=== PATIENT | female | born 1995 | race Caucasian/White ===

== ENCOUNTER → 2020-10-09 07:20 | Outpatient (CLI) | payer BC, SELFPAY ==
--- NOTE | ~2020-10-09 | US_ITS ---
EXAMINATION: US right upper quadrant DATE: 10/09/2020 07:45 INDICATION: Right upper quadrant pain TECHNIQUE: Multiple grayscale and Doppler ultrasound images of the abdomen were obtained. COMPARISON: None available FINDINGS: The head, body, and tail of the pancreas are normal. The liver is normal with normal echoge nicity and echotexture. No surface nodularity. Normal hepatopetal flow in the main portal vein. The g allbladder is normal with no abnormal wall thickening, pericholecystic fluid or stones. The normal co mmon bile duct measures 3 mm. There was no sonographic Wagner sign. Mild right hydronephrosis is pres ent. IMPRESSION: 1. Normal sonographic study of the gallbladder. 2. Mild right hydronephrosis is present. Reviewed, dictated and finalized at location A. INE HOSE CUTTER
== END ==
PROVIDERS: Visit Provider Obstetrics & Gynecology Gynecology
DX: R10.11 Right upper quadrant pain (principal)
CPT/HCPCS: 76705

== ENCOUNTER 2021-02-05 10:00 | Outpatient (RCR) | payer BC, OTHER, SELFPAY ==
[2020-12-30 18:16] VITALS: BP 123/78; PULSE 81
[2021-01-13 13:32] VITALS: BP 113/67; PULSE 94
[2021-02-05 11:05] VITALS: BP 107/73; PULSE 84
== END 2021-02-11 07:34 | disposition home or self-care (01) ==
LOC: ANHOBOP 10:00
PROVIDERS: PCP Family Medicine; Visit Provider Obstetrics & Gynecology
DX: O16.3 Unspecified maternal hypertension, third trimester (principal); O36.8130 Decreased fetal movements, third trimester, not applicable or unspecified; Z3A.32 32 weeks gestation of pregnancy; Z3A.34 34 weeks gestation of pregnancy; Z3A.38 38 weeks gestation of pregnancy
CPT/HCPCS: 59025

== ENCOUNTER 2021-02-09 18:39 | Inpatient (IN) | payer BC, SELFPAY ==
[2021-02-09] VITALS (13 sets, daily range): BP systolic 111–134; BP diastolic 65–82; PULSE 83–99; RESP 18–20; TEMP 36.3–36.8; BMI 39.9
[2021-02-09 19:32] LABS: Alanine Aminotransferase 17 U/L (4-35); Albumin Level 3.4 g/dL (3.5-5.1); Alkaline Phosphatase 89 U/L (38-126); Anion Gap 6 mmol/L (8-16); Aspartate Amino Transferase 21 U/L (14-36); Bilirubin,Total < 0.1 mg/dL (0.2-1.3); Blood Urea Nitrogen 7 mg/dL (7-17); Calcium 8.9 mg/dL (8.4-10.2); Carbon Dioxide 22 mmol/L (22-30); Chloride 107 mmol/L (98-107); Estimated Glomerular Filt Rate > 60; Glucose 106 mg/dL (65-105); Potassium 3.7 mmol/L (3.4-5.0); Sodium 135 mmol/L (137-145)
[2021-02-09 19:33] LABS: Uric Acid 3.7 mg/dL (2.5-7.5)
[2021-02-09 19:39] LABS: Basophils Percent Auto 0.2 % (0.2-1.2); Eosinophils Absolute Auto 0.2 K/mm3 (0-0.3); Eosinophils Percent Auto 1.8 % (0-4.4); Hematocrit 33.9 % (37.0-47.0); Hemoglobin 11.2 g/dL (12.0-15.0); Immature Granulocyte Absolute 0.13 K/mm3 (0.00-0.031); Immature Granulocyte Percent A 1.1 % (0-0.5); Lymphocytes Absolute Auto 2.67 K/mm3 (0.9-3.2); Lymphocytes Percent Auto 22.1 % (18.3-44.2); Mean Corpuscular Hemoglobin 30.1 pg (26-34); Mean Corpuscular Volume 91.1 fl (80-100); Mean Platelet Volume 9.6 fl (7.4-10.4); Monocytes Absolute Auto 0.9 K/mm3 (0.1-0.6); Monocytes Percent Auto 7.4 % (2.6-8.5); Neutrophils Absolute Auto 8.2 K/mm3 (1.3-6.7); Neutrophils Percent Auto 67.4 % (45.5-73.1); Platelet Count Result 245 k/mm3 (150-375); Red Blood Count 3.72 M/mm3 (4.2-5.4); Red Cell Distribution Width 14.6 % (11.5-14.5); White Blood Count 12.1 K/mm3 (4.5-10.0)
[2021-02-09] MEDS: DINOPROSTONE 10 MG VAG INSERT VAGINAL (19:39)
--- NOTE | 2021-02-09 19:53 | LDADM ---
This patient, Allison Montero, was admitted to Labor/Delivery/Recovery 109 on 02/09/21 at 18:39. Plans for labor, pain management and were discussed with patient. Patient/family oriented to hospital policies and general routines including ID bracelet, bed and alarms, visiting hours, pain management, procedures, bathroom and other care routines, personal items, smoking policy, room service/diet and guest tray routines, infant security routines, and visiting hours. Patient/Family are encouraged to report perceived risks to care and to ask questions if they do not understand what they are told or what they should do. See OBIX for further documentation.
[2021-02-10] VITALS (211 sets, daily range): BP systolic 85–148; BP diastolic 52–94; PULSE 73–104; RESP 16–22; TEMP 36–37.1; O2SAT 95–100
[2021-02-10] MEDS: LACTATED RINGERS 1,000 ML 125 ML IV CONT ×4 (03:22→19:38)
[2021-02-10] MEDS: LABETALOL HCL 100 MG TABLET 200 MG PO (06:37)
--- NOTE | 2021-02-10 07:26 | P.HP_ITS ---
Obstetrics - Admit Note Admission Note: AROM clear fluid /- record reviewed. No pertinent additions to the history and/or any subsequent changes in the physical findings that are not consistent with the expected course of the were found. Additions to the history and/or subsequent changes in the physical findings fo llow. None.
[2021-02-10] MEDS: OXYTOCIN 30 UNITS/NS 500 ML 30 UNITS/500 ML BAG IV CONT (08:34)
[2021-02-10 08:52] LABS: Rapid Plasma Reagin Non-Reactive (NonReactive)
--- NOTE | 2021-02-10 09:02 | WPDANESEPP ---
Anes - Eval Pre Procedure Procedure: labor epidural Date/Time: 02/10/21 09:02 Surgeon: cody Pre Op Diagnosis: Induction of Labor Patient Data Age: 25 Gender: F Height: 1.6 m Weight: 102.3 kg Last Vital Signs Temp 36.0 C L 02/10/21 06:30 Pulse 96 02/10/21 07:58 Resp 20 02/10/21 03:04 BP 143/93 H 02/10/21 07:58 Allergies Allergy/AdvReac Type Severity Reaction Status Date / Time Penicillins Allergy Unknown Verified 01/24/21 14:19 Home Medications Medication Instructions Recorded Confirmed Type aspirin [Low-Dose Aspirin] 81 mg PO DAILY 01/24/21 02/09/21 History ergocalciferol (vitamin D2) 1,250 mcg PO 2XW 01/24/21 02/09/21 History [Vitamin D2] ferrous sulfate 325 mg PO BID 01/24/21 02/09/21 History labetalol 200 mg PO Q12H 01/24/21 02/09/21 History prenat.vits,ki,xwk-uvjr-bmoww 1 tablet PO DAILY 01/24/21 02/09/21 History [ #2] Laboratory Tests 02/09/21 02/09/21 02/09/21 19:15 19:15 19:15 WBC 12.1 K/mm3 H K/mm3 (4.5-10.0) RBC 3.72 M/mm3 L M/mm3 (4.2-5.4) Hgb 11.2 g/dL L g/dL (12.0-15.0) Hct 33.9 % L % (37.0-47.0) MCV 91.1 fl fl (80-100) MCH 30.1 pg pg (26-34) MCHC 33.0 g/dl g/dl (32-36) RDW 14.6 % H % (11.5-14.5) Plt Count 245 k/mm3 k/mm3 (150-375) MPV 9.6 fl fl (7.4-10.4) Immature Gran % (Auto) 1.1 % H % (0-0.5) Neut % (Auto) 67.4 % % (45.5-73.1) Lymph % (Auto) 22.1 % % (18.3-44.2) [place] % (Auto) 7.4 % % (2.6-8.5) Eos % (Auto) 1.8 % % (0-4.4) Baso % (Auto) 0.2 % % (0.2-1.2) Lymph # (Auto) 2.67 K/mm3 K/mm3 (0.9-3.2) [place] # (Auto) 0.9 K/mm3 H K/mm3 (0.1-0.6) Eos # (Auto) 0.2 K/mm3 K/mm3 (0-0.3) Baso # (Auto) 0.0 K/mm3 K/mm3 (0.0-0.1) Abs Immat Gran (auto) 0.13 K/mm3 H K/mm3 (0.00-0.031) Absolute Neuts (auto) 8.2 K/mm3 H K/mm3 (1.3-6.7) Absolute Nucleated RBC 0.0 K/mm3 K/mm3 (0.0-0.012) Nucleated RBC % 0.0 % % (0.0-0.2) Sodium Potassium Chloride Carbon Dioxide Anion Gap BUN Creatinine Estim Creat Clear Calc Estimated GFR Glucose Uric Acid 3.7 mg/dL mg/dL (2.5-7.5) Calcium Total Bilirubin AST ALT Alkaline Phosphatase Total Protein Albumin RPR Non-reactive (NonReactive) Blood Type Antibody Screen 02/09/21 02/09/21 19:15 19:15 WBC RBC Hgb Hct MCV MCH MCHC RDW Plt Count MPV Immature Gran % (Auto) Neut % (Auto) Lymph % (Auto) [place] % (Auto) Eos % (Auto) Baso % (Auto) Lymph # (Auto) [place] # (Auto) Eos # (Auto) Baso # (Auto) Abs Immat Gran (auto) Absolute Neuts (auto) Absolute Nucleated RBC Nucleated RBC % Sodium 135 mmol/L L mmol/L (137-145) Potassium 3.7 mmol/L mmol/L (3.4-5.0) Chloride 107 mmol/L mmol/L (98-107) Carbon Dioxide 22 mmol/L mmol/L (22-30) Anion Gap 6 mmol/L L mmol/L (8-16) BUN 7 mg/dL mg/dL (7-17) Creatinine 0.50 mg/dL L mg/dL (0.7-1.0) Estim Creat Clear Calc Not Reportable Estimated GFR > 60 (59 - ) Glucose 106 mg/dL H mg/dL (65-105) Uric Acid Calcium 8.9 mg/dL mg/dL (8.4-10.2) Total Bilirubin < 0.1 mg/dL L mg/dL (0.2-1.3) AST 21 U/L U/L (14-36) ALT 17 U/L U/L (4-35) Alkaline Phosphatase 89 U/L U/L (38-126) Total Protein 6.0 g/dL L g/dL (6.3-8.2) Albu
[2021-02-10] MEDS: ONDANSETRON INJ 4 MG/2 ML VIAL IV PUSH (18:31)
--- NOTE | 2021-02-10 23:38 | PM.OBPRVD ---
OB - Delivery Note Procedure Delivery date: 02/10/21 Procedure: Intrapartal events: Acceleration Induction method: AROM, per pitocin protocol and per cervidil protocol Delivery monitor: external FHT, external uterine and internal uterine Route of delivery: Episiotomy description: Midline Laceration Description: Perineal - 2nd Degree Delivery repair: vicryl Specimen: Yes Quantitative Blood Loss (ml): 380 Anesthesia type: Epidural Disposition: floor Baby Date of : 02/10/21 Weeks of gestation at delivery: 38 gender: Female Weight (pounds): 7 Weight (ounces): 9 presentation: vertex position: Right Occiput Anterior cord vessel description: 3 Vessels and Around Body x1 score one minute: 8 score five minutes: 9
[2021-02-10] MEDS: OXYTOCIN 30 UNITS/NS 500 ML 30 UNITS/500 ML BAG 125 UNITS IV CONT (23:49)
[2021-02-11] VITALS (15 sets, daily range): BP systolic 112–148; BP diastolic 68–88; PULSE 70–92; RESP 16–18; TEMP 36.4–37; O2SAT 96–99
[2021-02-11] MEDS: IBUPROFEN 600 MG TABLET PO ×4 (00:16→22:43)
[2021-02-11] MEDS: LABETALOL HCL 100 MG TABLET 200 MG PO ×3 (01:19→20:20)
[2021-02-11] MEDS: WITCH HAZEL 40 PADS 1 PAD TOPICAL (01:20)
[2021-02-11] MEDS: BENZOCAINE 20% AER SPR (*SP) 56 GM CAN 1 SPRAY TOPICAL (01:20)
--- NOTE | 2021-02-11 01:43 | OBPPTRN ---
Patient transferred to post room #291 via wheelchair. Support person present. Oriented to unit, room, information board, rooming in, admission packet and security measures. Patient verbalizes understanding. with patient.
[2021-02-11 05:54] LABS: Hematocrit 33.5 % (37.0-47.0); Hemoglobin 10.9 g/dL (12.0-15.0)
[2021-02-11] MEDS: MULTIVIT/MIN/PREN/FOL AC/IRON TABLET 1 TAB PO (08:46)
--- NOTE | 2021-02-11 12:47 | PM.OBPNVD ---
OB - PN: Subj Subjective Date/time seen: 02/11/21 12:47 doing well no complaints OB - PN: Obj Data Labs CBC & Chem 7: 02/11/21 05:24 02/09/21 19:15 Labs: Laboratory Results - last 24 hr 02/11/21 05:24 Hgb 10.9 L Hct 33.5 L OB - PN A/P Assessment and Plan (1) (normal spontaneous vaginal delivery): Code(s): O80 - Encounter for full-term uncomplicated delivery Status: Acute Assessment and Plan: continue with pp care. plans micronor control. Time Spent With Patient Time: Total time spent is greater than 50% in coordination of care (as documented) at patient's floor/unit and/or counseling patient: Exam : Other: ff below umbilicus
--- NOTE | 2021-02-11 13:04 | WPDANLDPN2 ---
Anes-Prog Note L&D Date/Time: 02/11/21 13:04 Comfortable throughout: labor and delivery Neuraxial method: epidural Epidural/Spinal procedure site: clean & non-tender Neuro status: Neuro function grossly intact. Cardiovascular status: normal Respiratory status: normal Airway patency: baseline Mental status: baseline Post-Op hydration status: normal Vital Signs: Last Vital Signs Temp 36.8 C 02/11/21 08:50 Pulse 72 02/11/21 12:17 Resp 18 02/11/21 08:50 BP 128/75 02/11/21 08:50 Pulse Ox 98 02/11/21 08:50 Pain score (VAS): 0 I/O: Intake & Output 02/10/21 02/11/21 02/11/21 23:59 07:59 15:59 Intake Total 2300 Output Total 55 Balance 2300 -55 Post-procedural complaints: none Patient feedback: Patient satisfied with anesthetic care.
--- NOTE | 2021-02-11 14:30 | PC.NURSE ---
Consult with pt., mother reports she wishes to pump and bottle feed EBM/formula. Mother states she has not pumped regularly due to not pumping more than a few drops previous sessions. Discussed the difference of nursing to pumping, mother may not have more than a few mls in the colostrum phase and milk should increase and transition in within a few days. Regular stimulation should assist with increasing milk supply. Reviewed breast pump care and usage, pumping schedule, nipple care, and collection and storage of breast milk. Encouraged [id number], breast massage and manual expression to stimulate supply. Assessed patient for correct flange size, placement and draw. Patient verbalizes and demonstrates understanding of instructions. Mother is feeding as required and waking infant to feed if needed. Infant is currently meeting for output, jaundice and feeding frequencies. Mother states she feels confident to continue current plan of pumping and bottle feeding at home. Reviewed transition to breast milk, signs of adequate intake, and engorgement/relief. Instructed to call ICP if intake/output less than required. Reviewed regular medications mother is taking. Information provided per Kamila. Reviewed community resources on the [facility] website and in the Mom/Baby guide. Information on outpatient services provided. Mother has no further questions at this time.
[2021-02-11] MEDS: ACETAMINOPHEN 325 MG TABLET 650 MG PO (20:18)
[2021-02-11] MEDS: DOCUSATE SODIUM 100 MG CAPSULE PO (20:18)
--- NOTE | 2021-02-12 07:45 | PC.NURSE ---
PT introductions made and plan of care discussed per post , pain management, breast pumping and bottle feeding, daily care activities and pending discharge to home. PT and spouse both receive instructions through out the day and no barriers to learning noted. Discussion one to one and mother baby guide utilized. PT verbalized understanding of such care.
[2021-02-12 10:00] VITALS: BP 126/84; PULSE 86; RESP 18; TEMP 37; O2SAT 98
[2021-02-12] MEDS: ACETAMINOPHEN 325 MG TABLET 650 MG PO (10:02)
[2021-02-12 10:03] VITALS: PULSE 84
[2021-02-12] MEDS: LABETALOL HCL 100 MG TABLET 200 MG PO (10:03)
[2021-02-12] MEDS: IBUPROFEN 600 MG TABLET PO (10:04)
[2021-02-12] MEDS: DOCUSATE SODIUM 100 MG CAPSULE PO (10:04)
--- NOTE | 2021-02-12 12:05 | PM.OBPNVD ---
OB - PN: Subj Subjective Date/time seen: 02/12/21 12:05 Patient comments: no complaints and pain well controlled baby status: doing well OB - PN: Obj Data Labs CBC & Chem 7: 02/11/21 05:24 02/09/21 19:15 OB - PN A/P Plan day: 2 Plan: routine care, discharge home, follow up 6 weeks and other (plans POP for bc) Time Spent With Patient Time: Total time spent is greater than 50% in coordination of care (as documented) at patient's floor/unit and/or counseling patient: Exam : Bimanual exam- vagina & uterus: other (Uterus firm, nt @U)
--- NOTE | 2021-02-12 12:08 | PC.NURSE ---
Patient viewed the discharge video Mother & Baby Care, The First Two Weeks . Patient was given the opportunity and encouraged to ask questions. Patient verbalized understanding of information shared and has been given the mother/baby guide for home reference.
--- NOTE | 2021-02-12 13:00 | PC.NURSE ---
PT received discharge instructions per protocol and verbalized understanding of such instructions.
--- NOTE | 2021-02-12 13:32 | PC.NURSE ---
PT discharged to home ambulatory accompanied by spouse and and taken to waiting car, Follow up appts confirmed
[2021-02-14 07:50] VITALS: BP 120/74; PULSE 84; RESP 16; TEMP 36.4; O2SAT 98
--- NOTE | 2021-03-07 08:18 | PM.OBDSVD ---
DS: Admitting Diagnosis Admitting Diagnosis Admitting Diagnosis: induction DS: Discharge Diagnosis Discharge Diagnosis (1) (normal spontaneous vaginal delivery): Code(s): O80 - Encounter for full-term uncomplicated delivery Status: Acute (2) HTN (hypertension): Code(s): I10 - Essential (primary) hypertension Status: Acute OB - DS: Summary OB Procedures : NST and Ultrasound OB Procedures Intrapartum: Spontaneous Vag Delivery OB Procedures: : None Time Spent with Patient Time attestation: Total time spent providing and/or coordinating discharge services: DS: Data Data Completed and Pending Completed studies during hospitalization: Pending at discharge 02/10/21 23:23 Surgical [PTH] Routine Discharge Plan Discharge Attending physician on discharge: Francisco J Berry Discharging Clinician: Francisca Kumar Anticipated Discharge Date/Time: 02/12/21 12:06 Patient Disposition: Home, Self-Care Activity: may shower and pelvic rest Diet: regular Discharge Instructions: Education: Mom and Baby Guide Given to: Mother Follow-Up: Call your delivering provider's office for an appointment to be seen in: 6 Weeks Mom and baby should come to the [facility] for the follow-up appointment. Appointment Date/Time: February 14, 2021 at 11:00 am What to expect at your follow-up visit: Blood Pressure Check Call [phone] if you are unable to keep your appointment time. BREAST CARE: * Wear a snug supportive bra. * For engorgement discomfort: Bottle Feeding: * May apply ice packs PERINEAL CARE: * Until bleeding stops, use your becky bottle after urinating * Change your pad frequently throughout the day * You may take sitz baths several times a day (fill your bathtub with warm water and soak for 20 minutes.) Do NOT bathe in the water * No tub baths until seen by your physician - You may shower ACTIVITY: * Rest as much as possible. * Do not exercise or lift anything heavier than your baby (such as laundry or other children.) * Avoid stairs or driving as much as possible. * Do not put anything into the vagina. No douching, tampons, or sexual activity until seen by physician. NOTIFY PHYSICIAN IF YOU HAVE ANY QUESTIONS OR IF ANY OF THE FOLLOWING SYMPTOMS OCCUR: * If your becomes red, swollen, or more painful than what you have experienced in the hospital. * If your vaginal bleeding becomes foul smelling. * If your vaginal bleeding becomes more heavy than a period or if your bleeding changes from pink to bright red. However, you may pass an occasional walnut-sized clot once or twice for the first week . * If you experience a sharp, shooting pain in you calves. * If you discover a hard, reddened area on your breast or if you experience flu-like symptoms. * If you have a fever of 100.4 or greater DIET: * Eat regular, well-balanced meals. * Drink plenty of fluids daily. If , drink to thirst. Patient Instructions: Antibiotic Form Stand Alone Forms: General Discharge Information Follow-up/Referrals: Francisco J Berry MD [Physician] - 6 Weeks Discharge Medications: New norethindrone (contraceptive) 0.35 mg tablet 0.35 mg PO DAILY Qty: 28 RF: 8 Continued labetalol 200 mg Tablet 200 mg PO Q12H RF: 0 ferrous sulfate 325 mg (65 mg iron) Tablet 325 mg PO BID RF: 0 ergocalciferol (vitamin D2) [Vitamin D2] 1,250 mcg (50,000 unit) Capsule 1,250 mcg PO 2XW RF: 0 prenat.vits,ki,lir-rtog-iduzd Tablet 1 tablet PO DAILY RF: 0 Discontinued Low-Dose Aspirin 81 mg Tablet 81 mg PO DAILY RF: 0 Date of admission: 02/09/21 18:39 Primary Care Provider: Toña,Addy Macias Admitting Provider: Francisco J Berry Attending physician on admission: Franicsca Kumar Condition: Stable
== END 2021-02-12 13:32 | disposition home or self-care (01) | DRG 807 ==
LOC: ANHLDR 19:24 → ANHOB2 02-12 07:44 → ANHLDR 02-15 10:01 → ANHOB2 02-15 10:01
PROVIDERS: Admitting Provider Obstetrics & Gynecology; PCP Family Medicine; Visit Provider Obstetrics & Gynecology Gynecology
DX: O10.92 Unspecified pre-existing hypertension complicating childbirth (principal); Z37.0 Single live birth; Z3A.38 38 weeks gestation of pregnancy; O36.8330 Maternal care for abnormalities of the fetal heart rate or rhythm, third trimester, not applicable or unspecified; O69.2XX0 Labor and delivery complicated by other cord entanglement, with compression, not applicable or unspecified
CPT/HCPCS: 36415; 80053; 84550; 85014; 85018; 85025; 86592; 86850; 86900; 86901; 88307; A9270; J2405; J2590; J2795; J7120

== ENCOUNTER → 2022-11-07 11:06 | Outpatient (CLI) | payer OTHER, SELFPAY ==
--- NOTE | ~2022-11-07 | US_ITS ---
EXAMINATION: US OB <= 14 weeks fetus DATE: 11/07/2022 11:29 INDICATION: Uncertain dating of during first trimester TECHNIQUE: Real-time pelvic ultrasound utilizing transabdominal probe was performed. The eli grajeda radiologist was not present for the study. COMPARISON: None. FINDINGS: The uterus measures 11.5 x 5.3 x 7.1 cm. There is an intrauterine gestational sac. A yolk sac and fe ishaan pole are identified. The crown rump length measures 2.3 cm, which correlates with an estimated ge stational age of 9 weeks and 0 days. heart motion is identified measuring 172 beats per minute (bpm) by M-mode Doppler. The right ovary measures 3.6 x 2.6 x 2.9 cm. 2.2 cm anechoic likely corpus luteum cyst in the right o vary. The left ovary measures 2.7 x 1.2 x 1.9 cm. There is no free fluid in the pelvis. IMPRESSION: 1. Single living fetus with heart rate of 172 bpm. 2. Gestational age by ultrasound of 9 weeks 0 day(s) +/- 6 day(s) with ultrasound estimated date of delivery (GUILHERME) of 06/12/2023. Reviewed, dictated and finalized at location A. NING MACHINE TENDER IMPRESSION: 1. Single living fetus with heart rate of 172 bpm. 2. Gestational age by ultrasound of 9 weeks 0 day(s) +/- 6 day(s) with ultraso und estimated date of delivery (GUILHERME) of 06/12/2023.
== END ==
PROVIDERS: PCP Obstetrics & Gynecology Gynecology; Visit Provider Obstetrics & Gynecology Gynecology
DX: Z36.87 Encounter for antenatal screening for uncertain dates (principal); Z3A.09 9 weeks gestation of pregnancy
CPT/HCPCS: 76801

== ENCOUNTER 2023-05-26 16:53 | Inpatient (IN) | payer OTHER, SELFPAY ==
[2023-05-26] VITALS (12 sets, daily range): BP systolic 103–136; BP diastolic 58–87; PULSE 86–97; RESP 16; TEMP 36.6–36.7
[2023-05-26 17:58] LABS: Basophils Percent Auto 0.3 % (0.2-1.2); Eosinophils Absolute Auto 0.1 K/mm3 (0-0.3); Eosinophils Percent Auto 1.3 % (0-4.4); Hemoglobin 11.5 g/dL (12.0-15.0); Immature Granulocyte Absolute 0.07 K/mm3 (0.00-0.031); Immature Granulocyte Percent A 0.6 % (0-0.5); Lymphocytes Percent Auto 25.7 % (18.3-44.2); Mean Corpuscular HGB Conc 31.9 g/dl (32-36); Mean Corpuscular Hemoglobin 29.5 pg (26-34); Mean Corpuscular Volume 92.3 fl (80-100); Mean Platelet Volume 10.2 fl (7.4-10.4); Monocytes Absolute Auto 0.7 K/mm3 (0.1-0.6); Monocytes Percent Auto 6.5 % (2.6-8.5); Neutrophils Absolute Auto 7.1 K/mm3 (1.3-6.7); Neutrophils Percent Auto 65.6 % (45.5-73.1); Platelet Count Result 238 k/mm3 (150-375); Red Cell Distribution Width 14.5 % (11.5-14.5); White Blood Count 10.9 K/mm3 (4.5-10.0)
[2023-05-26 18:10] LABS: Alanine Aminotransferase 19 U/L (6-35); Albumin Level 3.4 g/dL (3.5-5.1); Alkaline Phosphatase 129 U/L (38-126); Anion Gap 5 mmol/L (8-16); Aspartate Amino Transferase 20 U/L (14-36); Bilirubin,Total 0.2 mg/dL (0.2-1.3); Blood Urea Nitrogen 7 mg/dL (7-17); Calcium 8.8 mg/dL (8.4-10.2); Carbon Dioxide 20 mmol/L (22-30); Chloride 106 mmol/L (98-107); Estimated Glomerular Filt Rate > 60; Glucose 97 mg/dL (65-110); Potassium 3.8 mmol/L (3.4-5.0); Sodium 131 mmol/L (137-145); Uric Acid 4.5 mg/dL (2.5-7.5)
[2023-05-26 18:11] LABS: Appearance Urine Clear (Clear); Bacteria Urine None Seen /hpf; Bilirubin Urine Negative (Negative); Blood Urine Negative (Negative); Color Urine Yellow (Yellow); Glucose Urine UA Negative (Negative); Ketones Urine Negative (Negative); Leukocyte Esterase Ur Trace LEU/UL (NEGATIVE); Nitrate Urine Negative (Negative); Non Pathogenic Casts 0-2; Protein Urine Negative (Negative); RBC Urine 0-2 /hpf (0-2); Specific Grav Ur 1.003 (1.001-1.035); Squamous Epithelial Cell Urine Few /hpf (Few); Urobilinogen Urine 0.2 mg/dL (<2.0); WBC Urine 0-5 /hpf (0-3)
[2023-05-26 18:12] LABS: Creatinine Urine 9.8 mg/dL; Total Protein Urine Random 14 mg/dL; Ur Ttl Prot Creatinine Ratio 1.43 mg/mg (0-0.20)
[2023-05-26 18:19] LABS: Add Urine Microscopic? YES
[2023-05-26 19:25] LABS: Basophils Percent Auto 0.3 % (0.2-1.2); Eosinophils Absolute Auto 0.2 K/mm3 (0-0.3); Eosinophils Percent Auto 1.5 % (0-4.4); Hematocrit 35.9 % (37.0-47.0); Hemoglobin 11.8 g/dL (12.0-15.0); Immature Granulocyte Absolute 0.07 K/mm3 (0.00-0.031); Immature Granulocyte Percent A 0.6 % (0-0.5); Lymphocytes Absolute Auto 3.31 K/mm3 (0.9-3.2); Mean Corpuscular HGB Conc 32.9 g/dl (32-36); Mean Corpuscular Hemoglobin 29.6 pg (26-34); Mean Platelet Volume 10.2 fl (7.4-10.4); Monocytes Absolute Auto 0.8 K/mm3 (0.1-0.6); Monocytes Percent Auto 6.2 % (2.6-8.5); Neutrophils Absolute Auto 7.9 K/mm3 (1.3-6.7); Neutrophils Percent Auto 64.4 % (45.5-73.1); Platelet Count Result 252 k/mm3 (150-375); Red Blood Count 3.99 M/mm3 (4.2-5.4); Red Cell Distribution Width 14.6 % (11.5-14.5); White Blood Count 12.3 K/mm3 (4.5-10.0)
[2023-05-26 20:15] LABS: HIV 1/2 Ab P24 Ag Result Negative (Negative)
[2023-05-26] MEDS: DINOPROSTONE 10 MG VAG INSERT VAGINAL (20:18)
[2023-05-26] MEDS: ACETAMINOPHEN 500 MG TABLET 1000 MG PO (20:18)
--- NOTE | 2023-05-26 23:05 | WPDANESEPP ---
Anes - Eval Pre Procedure Procedure: labor epidural Date/Time: 05/26/23 23:05 Pre Op Diagnosis: Induction/PHI Patient Data Age: 27 Gender: F Height: Weight: Last Vital Signs Temp 36.7 C 05/26/23 19:00 Pulse 97 05/26/23 20:00 Resp 16 05/26/23 19:00 BP 109/70 05/26/23 20:00 Allergies Allergy/AdvReac Type Severity Reaction Status Date / Time Penicillins Allergy Unknown Verified 05/26/23 19:05 Home Medications Medication Instructions Recorded Confirmed Type ergocalciferol (vitamin D2) 1,250 See Rx Instructions .Route .COMPLEX 01/24/21 05/15/23 History mcg (50,000 unit) capsule (Vitamin D2) prenat.vits,ki,czv-dloq-ewikl 1 tablet PO DAILY 01/24/21 05/15/23 History aspirin 81 mg tablet 81 mg PO DAILY 05/15/23 05/15/23 History nifedipine 60 mg tablet,extended 60 mg PO DAILY 05/15/23 05/15/23 History release 24 hr (Procardia XL) Laboratory Tests 05/26/23 05/26/23 05/26/23 17:28 17:29 19:18 WBC 10.9 H K/mm3 12.3 H K/mm3 (4.5-10.0) (4.5-10.0) RBC 3.90 L M/mm3 3.99 L M/mm3 (4.2-5.4) (4.2-5.4) Hgb 11.5 L g/dL 11.8 L g/dL (12.0-15.0) (12.0-15.0) Hct 36.0 L % 35.9 L % (37.0-47.0) (37.0-47.0) MCV 92.3 fl 90.0 fl (80-100) (80-100) MCH 29.5 pg 29.6 pg (26-34) (26-34) MCHC 31.9 L g/dl 32.9 g/dl (32-36) (32-36) RDW 14.5 % 14.6 H % (11.5-14.5) (11.5-14.5) Plt Count 238 k/mm3 252 k/mm3 (150-375) (150-375) MPV 10.2 fl 10.2 fl (7.4-10.4) (7.4-10.4) Immature Gran % (Auto) 0.6 H % 0.6 H % (0-0.5) (0-0.5) Neut % (Auto) 65.6 % 64.4 % (45.5-73.1) (45.5-73.1) Lymph % (Auto) 25.7 % 27.0 % (18.3-44.2) (18.3-44.2) [place] % (Auto) 6.5 % 6.2 % (2.6-8.5) (2.6-8.5) Eos % (Auto) 1.3 % 1.5 % (0-4.4) (0-4.4) Baso % (Auto) 0.3 % 0.3 % (0.2-1.2) (0.2-1.2) Lymph # (Auto) 2.80 K/mm3 3.31 H K/mm3 (0.9-3.2) (0.9-3.2) [place] # (Auto) 0.7 H K/mm3 0.8 H K/mm3 (0.1-0.6) (0.1-0.6) Eos # (Auto) 0.1 K/mm3 0.2 K/mm3 (0-0.3) (0-0.3) Baso # (Auto) 0.0 K/mm3 0.0 K/mm3 (0.0-0.1) (0.0-0.1) Abs Immat Gran (auto) 0.07 H K/mm3 0.07 H K/mm3 (0.00-0.031) (0.00-0.031) Absolute Neuts (auto) 7.1 H K/mm3 7.9 H K/mm3 (1.3-6.7) (1.3-6.7) Absolute Nucleated RBC 0.0 K/mm3 0.0 K/mm3 (0.0-0.012) (0.0-0.012) Nucleated RBC % 0.0 % 0.0 % (0.0-0.2) (0.0-0.2) Sodium 131 L mmol/L (137-145) Potassium 3.8 mmol/L (3.4-5.0) Chloride 106 mmol/L (98-107) Carbon Dioxide 20 L mmol/L (22-30) Anion Gap 5 L mmol/L (8-16) BUN 7 mg/dL (7-17) Creatinine 0.50 L mg/dL (0.7-1.0) Estim Creat Clear Calc Not Reportable Estimated GFR > 60 (59 - ) Glucose 97 mg/dL (65-110) Uric Acid 4.5 mg/dL (2.5-7.5) Calcium 8.8 mg/dL (8.4-10.2) Total Bilirubin 0.2 mg/dL (0.2-1.3) AST 20 U/L (14-36) ALT 19 U/L (6-35) Alkaline Phosphatase 129 H U/L (38-126) Total Protein 6.0 L g/dL (6.3-8.2) Albumin 3.4 L g/dL (3.5-5.1) Urine Color Yellow (Yellow) Urine Appearance Clear (Clear) Urine pH 7.0 (5.0-9.0) Ur Specific [place] 1.003 (1.001-1.035) Urine Protein Negative mg/dL (Negative) Urine Glucose (UA) Negative mg/dL (Negative) Urine Ketones Negative mg/dL (Negative) Ur Blood (Man) Negative (Negative) Urine Nitrate Negative (Negative) Urine Bilirubin Negative (Negative) Urine Urobilinogen 0.2 mg/dL (<2.0) Ur Leukocyte Esterase Trace H ALEXANDRA/UL (NEGATIVE) Urine RBC 0-2 /hpf (0-2) Urine WBC 0-5 /hpf (0-3) Ur Squamous Epith Cells Few /hpf
[2023-05-27] VITALS (201 sets, daily range): BP systolic 75–143; BP diastolic 34–118; PULSE 75–121; RESP 15–16; TEMP 36.2–36.8; O2SAT 95–100; BMI 41.0
[2023-05-27] MEDS: diphenhydrAMINE HCl INJ 50 MG/ML VIAL 25 MG IV PUSH (00:46)
--- NOTE | 2023-05-27 09:12 | PM.IMHP ---
H&P: HPI History of Present Illness Date/Time: 05/27/23 09:00 Chief Complaint: headache, elevated blood pressures Narrative: Allison is a 27yo @ 37.3wks (GUILHERME 06/14/23) who presented to L&D with worsening headaches and elevated blood pressures. At home, they were ranging 140/100's; normally 130/80s. Blood work was repeated and normal, but her P/C ratio was found to be elevated at 1.4 and she was kept overnight for cervidil IOL due to a new diagnosis of superimposed pre-eclampsia without severe features. She denies contractions, vb, lof. She is feeling movement. The headache is still present. No vision changes, CP, SOB, or RUQ pain. Her is complicated by: - CHTN on nifedipine 60mg; 24 hr urine 135 ---> SPEC w/o SF - Elevated 1 hour; normal 3 hour - LGA baby, >97%ile Review of Systems Constitutional: Constitutional: Denies chills, Denies fever(s) and Reports headache(s) Eyes: Eyes: Denies change in vision ENT: Reports headache(s) Cardiovascular: Cardiovascular: Denies chest pain and Denies dyspnea Respiratory: Respiratory: Denies dyspnea Gastrointestinal: Gastrointestinal: Reports nausea Genitourinary: Genitourinary: Denies abnormal vaginal bleeding and Denies vaginal discharge Neurologic: Reports headache(s) Psychiatric: Psychiatric: Denies anxiety and Denies depression [facility] Past Medical History Medical History HTN (hypertension) Inflammatory arthritis Migraines (normal spontaneous vaginal delivery) Family History Family History Mother Diabetes mellitus Hypertension Grandparent Diabetes mellitus Congestive heart failure Lupus Father Hypertension Sibling Hypertension Social History Social History Smoking status: Never smoker Substance use: never Spiritual care concerns: No Meds Home Medications and Allergies Home Medications Medication Instructions Recorded Confirmed Type ergocalciferol (vitamin D2) 1,250 See Rx Instructions .Route .COMPLEX 01/24/21 05/27/23 History mcg (50,000 unit) capsule (Vitamin D2) prenat.vits,ki,hqb-xjqh-tdaci 1 tablet PO DAILY 01/24/21 05/27/23 History aspirin 81 mg tablet 81 mg PO DAILY 05/15/23 05/27/23 History nifedipine 60 mg tablet,extended 60 mg PO DAILY 05/15/23 05/27/23 History release 24 hr (Procardia XL) Allergies Allergy/AdvReac Type Severity Reaction Status Date / Time Penicillins Allergy Unknown Verified 05/26/23 19:05 Vital Signs Vital Signs - 24 hr 05/26/23 17:16 05/26/23 17:31 05/26/23 17:46 Temperature Pulse Rate 91 96 88 Respiratory Rate Blood Pressure 136/81 121/83 127/87 05/26/23 18:01 05/26/23 18:16 05/26/23 18:31 Temperature Pulse Rate 86 89 91 Respiratory Rate Blood Pressure 127/71 127/71 121/74 05/26/23 19:23 05/26/23 19:30 05/26/23 19:45 Temperature Pulse Rate 88 94 88 Respiratory Rate Blood Pressure 120/69 110/68 103/58 L 05/26/23 20:00 05/26/23 19:00 05/27/23 00:49 Temperature 98.1 F Pulse Rate 97 81 Respiratory Rate 16 Blood Pressure 109/70 102/58 L 05/26/23 23:06 05/27/23 01:00 05/27/23 02:00 Temperature 97.9 F 98.3 F Pulse Rate Respiratory Rate 16 16 16 Blood Pressure 05/27/23 06:12 05/27/23 04:45 Temperature 98.1 F Pulse Rate 87 Respiratory Rate 15 Blood Pressure 106/60 Exam Const: General: cooperative, comfortable, no acute distress and obese Nutritional Appearance: obese Orientation/consciousness: patient oriented x3 Resp: Effort & Inspection: normal respiratory effort Cardio: Rate: regular rate GI: GI Palp: No abdominal tenderness : Other: FHT's: 120's/ mod abby/ + accels/ no decels - cat 1 TOCO: ctxs q2-3min Cervix:2/thick/ high, anterior, soft Membranes: intact Presentation: cephalic Skin: Gen
--- NOTE | 2023-05-27 09:13 | WPDHPUPDATE1 ---
History and Physical Update Update Date/Time: 05/27/23 09:13 History and Physical has been reviewed, including an updated exam of the patient. There are NO changes in the patient's condition. Risks, benefits, and alternatives have been discussed and questions answered. Patient agrees to proceed with procedure.
[2023-05-27] MEDS: LACTATED RINGERS 1,000 ML 999 ML IV CONT (09:22)
[2023-05-27] MEDS: LACTATED RINGERS 1,000 ML 125 ML IV CONT ×2 (10:26→15:00)
--- NOTE | 2023-05-27 11:04 | PM.OBPNLAB ---
Pain Control Date/time seen: 05/27/23 11:04 Pain control: epidural Pelvic Exam Dilation (cm): 2 Effacement (%): 50 station: -3 Amniotic membrane status: Ruptured (AROM, clear (copious amounts of fluid), 1100) Contractions Monitor mode: Internal (placed this exam) Contraction frequency: 2 Status status: Category l Assessment and Plan Assessment: induction ongoing Plan: continuous present management Comments: - high dose pitocin
[2023-05-27] MEDS: OXYTOCIN 30 UNITS/NS 500 ML 30 UNITS/500 ML BAG IV CONT (11:51)
--- NOTE | 2023-05-27 18:40 | PM.OBPRVD ---
OB - Delivery Note Procedure Delivery date: 05/27/23 Events: Chronic Hypertension and Other (super-imposed pre-eclampsia without severe features) Induction method: Per Cervidil Protocol Delivery augmentation: Rupture of Membranes and Pitocin Delivery monitor: External FHT and Internal Uterine Route of delivery: Laceration Description: Perineal - 2nd Degree Delivery repair: vicryl Specimen: Yes (placenta) Quantitative Blood Loss (ml): 250 Anesthesia type: Epidural Disposition: Floor [place] Baby Date of : 05/27/23 Time of : 18:21 Weeks of gestation at delivery: 37 (.3) Infant gender: Male Weight (pounds): 8 Weight (ounces): 5 presentation: vertex position: Right Occiput Anterior Placenta delivery description: Expressed Cord Vessel Description: 3 Vessels and Delayed Cord Clamping score one minute: 9 score five minutes: 9 Narrative: Allison progressed to complete dilation with strong desire to push. She pushed for approximately 30 minutes with good maternal effort. She delivered the head over intact perineum. No nuchal cord was palpated. She easily delivered the 's shoulders and body without complication. The was immediately placed skin to skin had spontaneous cry. Delayed cord clamping was performed. The umbilical cord was doubly clamped and cut. A segment of the cord was collected for cord gases. The remaining cord blood was collected for typing. With Pitocin running and gentle downward traction on the cord, the placenta delivered without complication. Bimanual massage was performed and good uterine tone was noted. She was examined and a second-degree perineal laceration was noted. The laceration was repaired in the normal fashion using 2-0 Vicryl. Good uterine tone with minimal bleeding was noted. Sponge, lap, instrument, needle counts were correct at the end procedure. Mom and baby were left bonding in the birthing suite in a stable condition. [facility] Delivery Billing Delivery Delivery: Delivery Charge
[2023-05-27] MEDS: OXYTOCIN 30 UNITS/NS 500 ML 30 UNITS/500 ML BAG 125 UNITS IV CONT (19:01)
[2023-05-27] MEDS: IBUPROFEN 600 MG TABLET PO (19:19)
[2023-05-27] MEDS: BENZOCAINE 20% AER SPR (*SP) 56 GM CAN 1 SPRAY TOPICAL (19:19)
[2023-05-27] MEDS: LORATADINE 10 MG TABLET PO (19:19)
[2023-05-27] MEDS: WITCH HAZEL 40 PADS 1 PAD TOPICAL (19:19)
--- NOTE | 2023-05-27 20:08 | PC.NURSE ---
Report given to DENIS Owusu RN
--- NOTE | 2023-05-27 20:38 | OBPPTRN ---
Patient transferred to post room #286 via wheelchair. Support person present. Oriented to unit, room, information board, rooming in, admission packet and security measures. Patient verbalizes understanding.
[2023-05-27] MEDS: ACETAMINOPHEN 325 MG TABLET 650 MG PO (21:30)
[2023-05-27] MEDS: HYDROcodone/acetaminophen (*CRX) 5-325 MG TABLET 1 TAB PO (22:10)
[2023-05-28 00:30] VITALS: BP 123/84; PULSE 94; RESP 16; TEMP 36.8; O2SAT 99
[2023-05-28] MEDS: HYDROcodone/acetaminophen (*CRX) 5-325 MG TABLET 1 TAB PO ×5 (03:01→22:34)
[2023-05-28 03:23] LABS: Hematocrit 33.3 % (37.0-47.0); Hemoglobin 10.9 g/dL (12.0-15.0)
[2023-05-28 04:15] VITALS: BP 120/73; PULSE 87; RESP 16; TEMP 36.5; O2SAT 100
[2023-05-28] MEDS: IBUPROFEN 600 MG TABLET PO ×2 (07:47→19:15)
[2023-05-28] MEDS: MULTIVIT/MIN/PREN/FOL AC/IRON TABLET 1 TAB PO (07:47)
[2023-05-28 08:10] VITALS: BP 124/79; PULSE 99; RESP 16; TEMP 36.7; O2SAT 98
[2023-05-28] MEDS: NIFEdipine 30 MG TAB.ER.24 60 MG PO (10:03)
[2023-05-28 12:05] VITALS: BP 123/80; PULSE 83; RESP 16; TEMP 36.8; O2SAT 100
--- NOTE | 2023-05-28 12:25 | PM.OBPNVD ---
OB - PN: Subj Subjective Date/time seen: 05/28/23 12:25 Patient comments: no complaints and pain well controlled baby status: doing well OB - PN: Obj Data Labs 05/28/23 03:05 05/26/23 17:28 Labs: Laboratory Results - last 24 hr 05/28/23 03:05 Hgb 10.9 L Hct 33.3 L OB - PN A/P Assessment and Plan (1) Chronic hypertension with superimposed pre-eclampsia: Code(s): O11.9 - Pre-existing hypertension with pre-eclampsia, unspecified trimester Status: Acute Assessment and Plan: BP stable No PIH sx. Continue to monitor Plan day: 1 Plan: routine care Time Spent With Patient Time: Total time spent is greater than 50% in coordination of care (as documented) at patient's floor/unit and/or counseling patient: Exam : Bimanual exam- vagina & uterus: other (Uterus firm, nt @U)
--- NOTE | 2023-05-28 12:26 | PM.OBDSVD ---
DS: Admitting Diagnosis Discharge Date 05/29/23 Admitting Diagnosis IUP 37 wks CHTN with superimposed preeclampsia DS: Discharge Diagnosis Discharge Diagnosis (1) Chronic hypertension with superimposed pre-eclampsia: Code(s): O11.9 - Pre-existing hypertension with pre-eclampsia, unspecified trimester Status: Acute (2) (normal spontaneous vaginal delivery): Code(s): O80 - Encounter for full-term uncomplicated delivery Status: Acute OB - DS: Summary OB Procedures : PIH Mgmt and Ultrasound OB Procedures Intrapartum: Spontaneous Vag Delivery OB Procedures: : None Peripartum Data Infant Delivery Method: Natural Vaginal Laceration Description: Perineal - 2nd Degree complications: none Time Spent with Patient Time attestation: Total time spent providing and/or coordinating discharge services: DS: Data Data Completed and Pending Pending studies at discharge: Pending at discharge 05/27/23 19:50 Surgical [PTH] Routine Labs on day of discharge: Labs from last 24 hours 05/28/23 03:05 Hgb 10.9 L Hct 33.3 L Discharge Plan Discharge Attending physician on discharge: Francisca Kumar Discharging Clinician: Francisca Kumar Anticipated Discharge Date/Time: 05/29/23 12:27 Patient Disposition: Home, Self-Care Activity: may shower and pelvic rest Diet: regular Patient Instructions: Antibiotic Form Stand Alone Forms: General Discharge Information Follow-up/Referrals: Francisca Kumar MD [Physician] - 1 Week (and 6 wk) Discharge Medications: No Action ergocalciferol (vitamin D2) [Vitamin D2] 1,250 mcg (50,000 unit) Capsule See Rx Instructions .ROUTE .COMPLEX Rx Instructions: 1,250 mcg orally on the 15th and 30 of the month prenat.vits,ki,uze-[id number]-[id number] Tablet 1 tablet PO DAILY nifedipine [Procardia XL] 60 mg Tablet Extended Release 24hr 60 mg PO DAILY Adult Aspirin 81 mg Tablet 81 mg PO DAILY Date of admission: 05/26/23 16:53 Primary Care Provider: Toña,Addy Macias Admitting Provider: Francisca Kumar Attending physician on admission: Francisca Kumar Condition: Stable
--- NOTE | 2023-05-28 12:32 | WPDANLDPN2 ---
Anes-Prog Note L&D Date/Time: 05/28/23 12:32 Comfortable throughout: labor and delivery Neuraxial method: epidural Epidural/Spinal procedure site: clean & non-tender Neuro status: Neuro function grossly intact. Cardiovascular status: normal Respiratory status: normal Airway patency: baseline Mental status: baseline Post-Op hydration status: normal Vital Signs: Last Vital Signs Temp 36.7 C 05/28/23 08:10 Pulse 99 05/28/23 08:10 Resp 16 05/28/23 08:10 BP 124/79 05/28/23 08:10 Pulse Ox 98 05/28/23 08:10 O2 Del Method Room Air 05/27/23 21:00 Pain score (VAS): 2/10 I/O: Intake & Output 05/27/23 05/28/23 05/28/23 23:59 07:59 15:59 Output Total 250 Balance -250 Patient feedback: Patient satisfied with anesthetic care.
[2023-05-28 14:18] LABS: Rapid Plasma Reagin Non-Reactive (NonReactive)
[2023-05-28 18:37] VITALS: BP 115/81; PULSE 90; RESP 16; TEMP 36.4; O2SAT 100
[2023-05-29] MEDS: HYDROcodone/acetaminophen (*CRX) 5-325 MG TABLET 1 TAB PO (03:36)
[2023-05-29] MEDS: IBUPROFEN 600 MG TABLET PO (03:37)
--- NOTE | 2023-05-29 08:06 | PM.OBPNVD ---
OB - PN: Subj Subjective Date/time seen: 05/29/23 08:06 Patient comments: no complaints and pain well controlled baby status: doing well OB - PN: Obj Data Labs 05/28/23 03:05 05/26/23 17:28 Labs: Laboratory Results - last 24 hr 05/26/23 19:18 RPR Non-reactive OB - PN A/P Plan day: 2 Plan: routine care, discharge home, follow up 6 weeks and other (plans IUD) Time Spent With Patient Time: Total time spent is greater than 50% in coordination of care (as documented) at patient's floor/unit and/or counseling patient: Exam : Bimanual exam- vagina & uterus: other (Uterus firm, nt @U)
[2023-05-29 08:10] VITALS: BP 129/79; PULSE 88; RESP 16; TEMP 37.1; O2SAT 100
[2023-05-29] MEDS: MULTIVIT/MIN/PREN/FOL AC/IRON TABLET 1 TAB PO (09:46)
[2023-05-29] MEDS: NIFEdipine 30 MG TAB.ER.24 60 MG PO (09:46)
[2023-05-30 11:21] VITALS: BP 124/81; PULSE 85; RESP 18; TEMP 36.3; O2SAT 100
== END 2023-05-29 11:05 | disposition home or self-care (01) | DRG 807 ==
LOC: ANHLDR 18:59 → ANHOB2 05-28 01:37
PROVIDERS: Admitting Provider Obstetrics & Gynecology; PCP Family Medicine; Visit Provider Obstetrics & Gynecology Gynecology
DX: O11.4 Pre-existing hypertension with pre-eclampsia, complicating childbirth (principal); Z37.0 Single live birth; O10.92 Unspecified pre-existing hypertension complicating childbirth; O70.1 Second degree perineal laceration during delivery; O36.63X0 Maternal care for excessive fetal growth, third trimester, not applicable or unspecified; Z3A.37 37 weeks gestation of pregnancy
CPT/HCPCS: 36415; 80053; 81001; 82570; 84156; 84550; 85014; 85018; 85025; 86592; 86703; 86850; 86900; 86901; 87086; 87088; 88307; 99199; A9270; G0432; J1200; J2590; J2795; J7120